=== PATIENT | male | born 1955 | race Caucasian/White ===

== ENCOUNTER 2016-11-15 03:27 | Inpatient (IN) | payer OTHER ==
[~2016-11-15] VITALS: Ht 180.3 cm; Wt 90.3 kg
[~2016-11-15 03:27] MED LIST: MOBIC15 MG PO
--- NOTE | 2016-11-15 09:44 | Operative Report ---
Operative/Inv Procedure Report Surgery Date: 11/15/16 Name of Procedure: Right total knee arthroplasty Pre-Operative Diagnosis: Primary osteoarthritis right knee Post-Operative Diagnosis: Same Estimated Blood Loss: less than 50ml Surgeon/Accounting Intern: UMA MCDOWELL,DONALD Johnson Anesthesia: moderate sedation (SPINAL), block IV Fluids: See anesthesia record Implants: Striker triathlon posterior stabilize knee size 5 femur, size 6 tibia, 31 patellar button, 9 mm polyethylene insert Drains: None Specimens: Bone to pathology Tourniquet: 51 minutes Complications: None Condition: Stable Operative Indication: Patient is very pleasant 61-year-old male who has been complaining of right knee pain for over a year now. He had a work-related injury and at that time sustained a meniscal tear. At the time of arthroscopy he was found to have degenerative changes as well and subsequently after arthroscopy the degenerative changes increased radiographically and his pain continued to increase. He failed conservative treatment and was indicated for total knee arthroplasty on the right. Skilled set of hands was necessary provided by physician bankruptcy legal assistant Luc Johnson weighted with retraction positioning is component assembly throughout the case. Operative/Procedure Note Note: Once informed consent was obtained and the correct limb was identified the patient was brought to operating room and placed on table in the supine position. After administration of spinal anesthesia patient had a [place] catheter placed and a thigh tourniquet placed. The right lower extremity is prepped and draped in the usual sterile fashion. To begin the procedure standard midline incision was made for total knee arthroplasty. Sharp dissection was carried down through the skin and subcutaneous tissue and fat. A medial parapatellar arthrotomy was performed and the patella was everted. Fat pad is removed from the patellar tendon. Patellar thickness was measured be 24 and a plan resection of 10 mm was performed with an oscillating saw without complication. Patella was sized to be a size 31 symmetric patellar. The jig was placed onto the patella and the lug nuts were drilled. Once this was done the knee was reduced placed in flexion with the patella retracted laterally. Z retractors were placed to protect the medial ankle lateral collateral ligaments. The cruciate ligaments were resected with Bovie cautery. The intramedullary canal of the femur was entered with a step drill and the distal femoral cutting guide was placed intramedullary. The cut was set for 6 valgus cut with 10 mm resection. Distal cut was made without complication. Bone was passed off as specimen. The femoral sizing guide was placed on the distal femur and we sized the femur to be a size 5 femur. A 4 in one size 5 distal femoral cutting block was placed and anterior, posterior, chamfer cuts were made without complication bone was passed off. Next the box cut guide was placed for a posterior stabilized knee and the box cut was made. At this point attention was then turned to the tibia. A pickle fork retractor was placed posteriorly and the tibia was translated anteriorly. The menisci removed medially and laterally. Posterior osteophytes from the removed femur were removed with a curved osteotome and curettes. A step drill was then used to enter the intramedullary canal the tibia. The tibial cutting guide was placed down each medullary canal and a plan resection of 4 mm off the affected or medial side of the knee was performed. A bone was passed off as specimen. The tibia was sized to be a size 6 tibia. Trial reduction was done with the 5 femur, 6 tibia and a 9 mm polyethylene insert. Knee had full extension and was stable to varus and valgus stress at 0 and 60. Knee was taken through a range of motion and patella tracked very nicely. Rotation of the tibial component was marked and the components removed. The tibial tray was then pinned back in place and the keel cut was made. At this point all entrance removed, the cement was mixed on the back table and the knee was pulse lavaged. When the cement was ready the components were cemented in place with the tibia cemented first followed by the femur and then the patellar button. All excess [place] was removed with curettes. A 9 mm polyethylene trial insert was placed and knee was placed into extension while cement hardened. While this was happening X Weinstein was used to to inject and the locally for pain relief. Once the cement hardened the knee was taken through a range of motion found be stable. Patient had full extension 120 of flexion. The 9 mm polyethylene insert was opened and locked into the tibial tray without, patient. The tourniquet was released and any bleeding was stopped with a Bovie cautery. The arthrotomy was then closed with #1 Vicryl interrupted sutures. The skin was closed 2-0 subcutaneous tissues and amrita. Sterile dressings applied and the patient was awakened and taken recovery in stable condition.
[2016-11-15] MEDS ORDERED: TOPROL XL25 M1 PO (10:05)
[2016-11-15] MEDS ORDERED: FERROUS SULFAT325 M3 PO (10:06)
[2016-11-15 12:54] VITALS: BP 146/76
--- NOTE | 2016-11-15 14:03 | NUR ---
PHYSICAL THERAPY: Recieved consult orders, reviewed chart,spoke to RN. Per RN, Patient was experiencing 9/10 pain upon arriving to the floor; given 2 pain pills, con't to experience pain, given 2 more pain pills and surigcal PA increased On-Q to 14. P.T. intro self/role to Pt, who was unable to keep eyes open at this time, decreased alertness, and ability to participate. P.T. will f/u with evaluation as appropriate. Thank you.
--- NOTE | 2016-11-15 14:06 | PN- Orthopedic ---
Subjective Subjective: Feels sleepy and slight nauseous after morphine. Tolerating some clears. Not yet out of bed. PT came by just after he was given morphine, so he's currently too sleepy to get up. Denies dizziness. No shortness of breath. No chest pains. Objective Vital Signs and I&Os Intake & Output 11/15 1600 11/15 0800 11/15 0000 11/14 1600 11/14 0800 11/14 0000 Intake Total Output Total Balance Patient 199 lb Weight vitals stable Physical Exam: General - alert & oriented x 3. sleepy. comfortable Lungs - clear bilaterally. no w/r/r. Cardiac - s1s2. reg. Abdomen - soft. nontender/nondistended. - arreola draining clear, yellow urine. Extremities - warm bilaterally. right knee dressing c/d/i. on q in place. nvi. athrombics active. Assessment/Plan Assessment/Plan This 61 year old white male with hx htn is POD#0 s/p right total knee arthroplasty for primary osteoarthritis advance diet as tolerated ivf until tolerating clears d/c arreola in am PT eval - wbat coumadin - dvt ppx dressing change POD#2 vanco melita-operatively Toprol XL 25 mg daily ordered for htn f/u am labs will d/w Core Measures/Miscellaneous Venous Thromboembolism VTE Risk Factors: Age > 40, Surgery VTE Contraindications: No Contraindications VTE Prophylaxis Ordered Inpt: Mech & Pharm VTE Diagnosis: No Beta Ulises Is Beta Ulises a Home Med? Yes If Yes, Was This Ordered Today? Yes Antibiotics Is Patient on Antibiotics? Yes If Yes: prophylaxis
[2016-11-15 16:16] VITALS: BP 116/82
[2016-11-15 20:16] VITALS: BP 140/90
[2016-11-15 23:40] VITALS: BP 121/90
[2016-11-16 05:22] VITALS: BP 118/86
[2016-11-16 08:19] VITALS: BP 118/80
[2016-11-16 08:56] LABS: ABSOLUTE BASOPHIL COUNT 0 /CUMM (0.0-0.2); ABSOLUTE EOSINOPHIL COUNT 0 /CUMM (0.0-0.7); ABSOLUTE GRANULOCYTE CT 8.6 /CUMM (1.4-6.5); ABSOLUTE LYMPH COUNT 1.4 /CUMM (1.2-3.4); ABSOLUTE MONOCYTE COUNT 1.2 /CUMM (0.10-0.60); BASOPHIL % 0.4 % (0.0-2.0); EOSINOPHIL % 0.3 % (0-5); GRANULOCYTE % 76.3 % (42.2-75.2); HEMATOCRIT 37.1 % (42-52); MEAN CORPUSCULAR HGB 31.7 PG (27.0-31.0); MEAN CORPUSCULAR HGB CONC 33.9 G/DL (33.0-37.0); MEAN CORPUSCULAR VOLUME 93.7 FL (80.0-94.0); PLATELET COUNT 218 /CUMM (130-400); RBC DISTRIBUTION WIDTH 13.6 % (11.5-14.5); RED BLOOD CELL CT 3.96 /CUMM (4.70-6.10); WHITE BLOOD CELL COUNT 11.3 /CUMM (4.8-10.8)
[2016-11-16 09:05] LABS: PT 11.9 SEC (9.4-12.5)
--- NOTE | 2016-11-16 09:17 | PN- Orthopedic ---
See Addendum Subjective Subjective: Reports didn't sleep well, but his knee discomfort improves with morphine. Out of bed with PT yesterday afternoon. Denied dizziness. No shortness of breath. No chest pains. Arreola removed this morning. Due to void by this afternoon. Passing some flatus. No bm. Objective Vital Signs and I&Os Vital Signs Date Time Temp Pulse Resp B/P Pulse O2 O2 Flow FiO2 Ox Delivery Rate 11/16 818 99.0 66 20 118/80 93 Room Air 11/16 0522 99.3 68 19 118/86 94 Room Air 11/15 2340 99.2 63 18 121/90 93 Room Air 11/15 2016 99.0 62 20 140/90 96 Room Air 11/15 1616 98.4 62 18 116/82 95 Room Air 11/15 1254 98.6 60 18 146/76 97 Room Air Intake & Output 11/16 1600 11/16 0800 11/16 0000 11/15 1600 11/15 0800 11/15 0000 Intake Total 600 1600 555 Output Total 350 800 Balance 250 800 555 Intake, IV 600 600 75 Intake, Oral 1000 480 Output, Urine 350 800 Patient 199 lb Weight Physical Exam: General - alert & oriented x 3. comfortable. no acute distress. Lungs - clear bilaterally. no w/r/r. Cardiac - s1s2. reg. Abdomen - soft. nontender. Extremities - right leg dressing c/d/i. calves soft and nontender b/l nvi. on q pump in place. Assessment/Plan Assessment/Plan This 61 year old white male with hx htn is POD#1 s/p right total knee arthroplasty for primary osteoarthritis tolerating regular diet d/c iv fluids arreola removed this morning. due to void by this afternoon. f/u labs coumadin accordingly - dvt ppx pain control as ordered bowel regime in place continue PT, wbat dressing change POD#2 melita-operative vanco completed continue toprol xl for htn his goal is to go home will d/w Core Measures/Miscellaneous Venous Thromboembolism VTE Risk Factors: Age > 40, Surgery VTE Contraindications: No Contraindications VTE Prophylaxis Ordered Inpt: Mech & Pharm VTE Diagnosis: No Beta Ulises Is Beta Ulises a Home Med? Yes If Yes, Was This Ordered Today? Yes Antibiotics Is Patient on Antibiotics? Yes If Yes: prophylaxis
[2016-11-16] MEDS ORDERED: DOCUSATE SODIU100 M3 PO (09:23)
[2016-11-16] MEDS ORDERED: RW (09:25)
[2016-11-16] MEDS ORDERED: PERCOCET 5-3251 EACH PO (09:25)
[2016-11-16] MEDS ORDERED: COUMADIN5 M2 PO (09:25)
--- NOTE | 2016-11-16 09:27 | Patient Discharge Instructions ---
Discharge Instructions General Discharge Information You were seen/treated for: Primary osteoarthritis right knee You had these procedures: Surgery Date: 11/15/16 Name of Procedure: Right total knee arthroplasty Watch for these problems: fever>101.3, increased pain, redness/swelling/drainage Call Surgeon to remove: Deejay No bath, but you may shower: Yes Other wound care: dry guaze dressing change daily, right knee Special Instructions: Take 7.5 mg of coumadin on 11/18/16 and then take 5 mg daily starting 11/19/16. Please have INR checked twice on Mondays and , starting 11/20/16. Diet Continue normal diet: Yes Recommended Diet: Regular Additional DIET Information: coumadin considerations Activity Full Activity/No Limits: No Activity Self Limited: Yes Activity Limited to: Weight bear as tolerated Other activity limits: rolling walker assistance, as needed. continue PT. Acute Coronary Syndrome Inclusion Criteria At DC or during hospital stay patient has or had the following: ACS DIAGNOSIS No Discharge Core Measures Meds if any: Prescribed or Continued at Discharge Meds if any: NOT Prescribed or Continued at Discharge Congestive Heart Failure Inclusion Criteria At DC or during hospital stay patient has or had the following: CHF DIAGNOSIS No Discharge Core Measures Meds if any: Prescribed or Continued at Discharge Meds if any: NOT Prescribed or Continued at Discharge Cerebrovascular accident Inclusion Criteria At DC or during hospital stay patient has or had the following: CVA/TIA Diagnosis No Discharge Core Measures Meds if any: Prescribed or Continued at Discharge Meds if any: NOT Prescribed or Continued at Discharge Venous thromboembolism Inclusion Criteria VTE Diagnosis No VTE Type NONE VTE Confirmed by (Test) NONE Discharge Core Measures - Per Current guidelines, there needs to be overlap - treatment for the first 5 days of Warfarin therapy. - If discharged on Warfarin prior to 5 days of - overlap therapy, the patient will need to be - assessed for post discharge needs including - *Post discharge parental anticoagulation - *Warfarin and/or parental anticoagulation education - *Follow up date to check INR post discharge At least 5 days overlap therapy as Inpatient No Meds if any: Prescribed or Continued at Discharge Note: Overlap Therapy is Warfarin and Anticoagulant Meds if any: NOT Prescribed or Continued at Discharge
--- NOTE | 2016-11-16 09:37 | Surgical Discharge Summary ---
Visit Information Visit Dates Admission Date: 11/15/16 Discharge Date: 11/18/16 History of Present Illness Chief Complaint: Primary osteoarthritis right knee, knee pain Medical History Blood Transfusion Hx: No Neurological: NONE EENT: NONE Cardiovascular: hypertension Respiratory: NONE Gastrointestinal: NONE Hepatic: NONE Renal: NONE Musculoskeletal: degen joint disease Psychiatric: NONE Endocrine: NONE Blood Disorders: NONE Cancer(s): NONE TRANSFUSION AIDE/Reproductive: NONE History of MRSA: No History of VRE: No History of CDIFF: No Isolation History: Standard Tetanus Vaccine: 04/15/15 Surgical History Pertinent Surgical History: non-contributory Psychosocial History Where Do You Live? Home Who Do You Live With? Spouse What is Your Primary Language? Armenian Review of Systems: see h&p Hospital Course Course Attending Physician: DONALD EATON MD Primary Care Physician: CHEYANNE GONZAELZ MD Hospital Course: Electively scheduled right total knee arthroplasty on 11/15/16 by for primary osteoarthritis right knee. Started on coumadin the day of surgery, with dose adjustments based on blood draws for PT/INR daily. Out of bed with PT the day of surgery without difficulty. Pain control titrated from iv morphine to oral percocet, with removal of the on-q pump on post-op day#2. Daily dressing changes with dry guaze initiated on post-op day#2, with removal of the primary surgical dressing. Discharge to home anticipated for post-op day#3 pending PT clearance. Complications: None Allergies: Coded Allergies: codeine (Intermediate, ITCHING 11/14/16) Disposition Summary Disposition Principal Diagnosis: Primary osteoarthritis right knee Additional Diagnosis: s/p Right total knee arthroplasty (11/15/16) Discharge Disposition: home health services Discharge Instructions General Discharge Information Code Status: Full Code Patient's Diet: regular diet as tolerated. coumadin considerations. Patient's Activity: weight bearing as tolerated. rolling walker assistance. Follow-Up Instructions/Appts: dry guaze dressing changes daily, right knee blood draws for PT/INR for coumadin dose adjustment. goal INR 2-3 percocet for pain as directed continue PT. wbat. staple removal around post-op day#14 follow up with within one month after discharge. Medications at Discharge Discharge Medications: Stop taking the following medications: Meloxicam (Mobic) 15 MG TAB ORAL DAILY as needed for PAIN Qty = 10 Continue taking these medications: Metoprolol Succ XL (Toprol XL) 25 MG TAB 25 Milligram ORAL Every Day Ferrous Sulfate (Ferrous Sulfate) 325 MG (65 MG IRON) TABLET 325 Milligram ORAL Every Day Start taking the following new medications: Docusate Sodium (Docusate Sodium) 100 MG CAPSULE 100 Milligram ORAL TWICE DAILY as needed for CONSTIPATION Days = 14 No Refills Instructions: stool softener available over the counter as needed Oxycodone HCl/Acetaminophen (Percocet 5-325 MG Tablet) 5 MG-325 MG TABLET 1-2 Tablet ORAL EVERY 4-6 HOURS NEEDED as needed for pain control Qty = 30 No Refills Instructions: take as directed for pain control as needed. do not combine with tylenol. Warfarin Sodium (Coumadin) 5 MG TABLET 1 Tablet ORAL DAILY Qty = 30 No Refills Instructions: dose adjustment according to blood draws for PT/INR. goal INR 2-3 Rolling Walker (Rolling Walker) UNIT 1 Unit SEE INSTRUCTIONS Qty = 1 No Refills Instructions: Use as instructed. Copies To: LISA MCDOWELL,CHEYANNE Ibarra
[2016-11-16 16:12] VITALS: BP 130/90
[2016-11-16 23:40] VITALS: BP 123/82
--- NOTE | 2016-11-17 07:19 | PN- Orthopedic ---
See Addendum Subjective Subjective: Reports pain improves with percocet. Tolerating food. No nausea. Out of bed with PT. Current plan is for home once he clears stairs. He denies dizziness. No shortness of breath. No chest pains. Passing flatus. No bm yet. Voiding without difficulty. Objective Vital Signs and I&Os Vital Signs Date Time Temp Pulse Resp B/P Pulse O2 O2 Flow FiO2 Ox Delivery Rate 11/16 2340 98.8 60 18 123/82 95 Room Air 11/16 1758 98.1 11/16 1612 99.2 65 19 130/90 94 11/16 0819 99.0 66 20 118/80 93 Room Air Intake & Output 11/17 0800 11/17 0000 11/16 1600 11/16 0800 11/16 0000 11/15 1600 Intake Total 150 700 407 160 7575 555 Output Total 1000 250 200 350 800 Balance -850 450 275 250 800 555 Intake, IV 75 600 600 75 Intake, Oral 150 470 074 2669 480 Output, Urine 1000 250 200 350 800 Patient 199 lb Weight Physical Exam: General - alert & oriented x 3. comfortable. no acute distress. Lungs - clear bilaterally. no w/r/r. Cardiac - s1s2. reg. Abdomen - soft. nontender. Extremities - warm bilaterally. dressing changed rle. incision well approximated with amrita. no erythema or exudates. on q removed. nvi. some right sided thigh swelling / tenderness. calves soft and nontender b/l. Assessment/Plan Assessment/Plan This 61 year old white male with hx htn is POD#2 s/p right total knee arthroplasty for primary osteoarthritis tolerating regular diet pain improves with percocet f/u labs coumadin accordingly - dvt ppx bowel regime in place continue PT, wbat dressing changed ?thigh swelling and tenderness. may consider venous usn discharge plan for home with services once he clears stairs with PT d/w Core Measures/Miscellaneous Venous Thromboembolism VTE Risk Factors: Age > 40, Surgery VTE Contraindications: No Contraindications VTE Prophylaxis Ordered Inpt: Mech & Pharm VTE Diagnosis: No Beta Ulises Is Beta Ulises a Home Med? Yes If Yes, Was This Ordered Today? Yes Antibiotics Is Patient on Antibiotics? Yes If Yes: prophylaxis
[2016-11-17 08:23] VITALS: BP 133/73
[2016-11-17 10:39] LABS: ABSOLUTE BASOPHIL COUNT 0 /CUMM (0.0-0.2); ABSOLUTE EOSINOPHIL COUNT 0 /CUMM (0.0-0.7); ABSOLUTE LYMPH COUNT 1.5 /CUMM (1.2-3.4); ABSOLUTE MONOCYTE COUNT 1.1 /CUMM (0.10-0.60); BASOPHIL % 0.1 % (0.0-2.0); EOSINOPHIL % 0.2 % (0-5); GRANULOCYTE % 77.6 % (42.2-75.2); HEMATOCRIT 36.1 % (42-52); MEAN CORPUSCULAR HGB 31.6 PG (27.0-31.0); MEAN CORPUSCULAR HGB CONC 33.6 G/DL (33.0-37.0); MEAN CORPUSCULAR VOLUME 94.2 FL (80.0-94.0); MEAN PLATELET VOLUME 8.6 FL (7.4-10.4); PLATELET COUNT 222 /CUMM (130-400); RBC DISTRIBUTION WIDTH 13.6 % (11.5-14.5); RED BLOOD CELL CT 3.83 /CUMM (4.70-6.10); WHITE BLOOD CELL COUNT 11.6 /CUMM (4.8-10.8)
[2016-11-17 11:01] LABS: PT 14.8 SEC (9.4-12.5)
--- NOTE | 2016-11-17 11:58 | RADIOLOGY REPORT ---
EXAMINATION: XR KNEE, RIGHT CLINICAL INFORMATION: Status post right total knee arthroplasty. COMPARISON: Right tibia and fibula dated 04/15/2015. TECHNIQUE: 2 views of the right knee were performed. FINDINGS: The patient is status post total right knee arthroplasty with the prosthetic components appearing intact and in anatomic alignment. Small prepatellar soft tissue swelling, knee joint effusion and subcutaneous and joint emphysema are seen along with a cutaneous staple line, consistent with recent postoperative state. No torres martinez bone fracture is seen. IMPRESSION: Expected postsurgical changes seen status post total right knee arthroplasty.
[2016-11-17 16:14] VITALS: BP 132/98
[2016-11-18 00:13] VITALS: BP 122/90
[2016-11-18 08:09] VITALS: BP 110/75
[2016-11-18 08:25] VITALS: BP 110/75
--- NOTE | 2016-11-18 09:57 | Event Note ---
Event Note Event Note: Pt was seen by Dr. West this AM and deemed stable for DC today. The nursing team had difficulty with lab draws this morning on him, and then he refused further stick due to anticipated discharge. I advised drawing blood to at least obtain an INR prior to discharge so that home dose of Warfarin can be determined. Otherwise, per CM notes, his worker's comp insurance approved home health services and rolling walker upon dc.
[2016-11-18 11:37] LABS: PT 16.4 SEC (9.4-12.5)
--- NOTE | 2016-11-18 13:15 | NUR ---
NURSING NOTE: PATIENT A/OX3, PAIN MEDS GIVEN PRIOR TO DISCHARGE. ROLLING WALKER WITH PATIENT. ALL DISCHARGE INFO EDUCATED TO PATIENT. HOME HEALTH SERVICES. IV DISCONTINUED. LEFT FLOOR VIA WHEELCHAIR WITH DISTRIBUTION AND SPOUSE.
--- NOTE | 2016-11-18 15:12 | NUR ---
NURSING NOTE: PATIENT CALLED FROM HOME AFTER DISCHARGE, THE PATIENT'S IV WAS LEFT IN PLACE. PROGRAM CLINICIAN AND SUPERVISOR SCREEN MAKING CONTACTED. PER PATIENT'S REQUEST, THIS NURSE WILL GO TO THE PATIENT'S HOUSE WITH A SECURITY EXCORT TO DISCONTINUE THE PATIENT'S IV.
--- NOTE | 2016-11-18 15:31 | NUR ---
NURSING NOTE: PATIENT CALLED HOSPITAL BACK AND SPOKE WITH JEWEL STRINGER. THE PATIENT'S FAMILY MEMBER WHO IS A NURSE REMOVED THE PATIENT'S IV LINE. NO ISSUES NOTED.
== END 2016-11-18 13:05 | disposition home health service (06) | DRG 470 ==
LOC: ENRESERVTM → ENRESERVDT → ENPENDDIS 03:27 → SDA 03:27 → 2NB 12:55
PROVIDERS: Nurse Practitioner; Physician Assistant Surgical; ADMIT Orthopaedic Surgery Foot and Ankle Surgery
PROC: 0SRC0J9 Replacement of Right Knee Joint with Synthetic Substitute, Cemented, Open Approach (ICD-10-PCS; principal; 2016-11-15)
DX: M17.11 Unilateral primary osteoarthritis, right knee (principal); I10 Essential (primary) hypertension; Z87.891 Personal history of nicotine dependence
CPT/HCPCS: 2NBP; 36415; 73560-RT; 82436; 87086; 88305; 97110-GO; 97116-GO; 97161-GP; 97530-GO; C1713; C9290; J0131; J2270; J2405; J2795; J3370; J7060